=== PATIENT | male | born 1965 | race Caucasian/White ===

== ENCOUNTER 2017-03-16 09:25 | Emergency (ER) | payer OTHER, BC ==
[~2017-03-16] VITALS: Ht 180.3 cm; Wt 117.9 kg
[~2017-03-16 09:25] MED LIST: CEPHALEXIN500 MG PO; LISINOPRIL-HCT1 EAC1 PO; NORCO 5-325 TA1 EACH PO
== END 2017-03-16 11:15 | disposition home or self-care (01) ==
LOC: ED 09:25
DX: S67.02XA Crushing injury of left thumb, initial encounter (principal); S62.522A Displaced fracture of distal phalanx of left thumb, initial encounter for closed fracture; I10 Essential (primary) hypertension; Z87.891 Personal history of nicotine dependence; Z79.899 Other long term (current) drug therapy; W23.0XXA Caught, crushed, jammed, or pinched between moving objects, initial encounter; Y92.69 Other specified industrial and construction area as the place of occurrence of the external cause; Y99.0 Civilian activity done for income or pay
CPT/HCPCS: 99282